=== PATIENT | female | born 1965 | race Caucasian/White ===

== ENCOUNTER 2017-12-04 18:46 | Emergency (ER) | payer OTHER ==
[~2017-12-04] VITALS: Ht 157.5 cm; Wt 66.2 kg
[2017-12-04 18:49] VITALS: Ht 157.5 cm; Wt 66.2 kg
[2017-12-04 21:23] VITALS: BP 125/77
[2017-12-04 22:01] LABS: microscopic required? YES; urine erythrocyte 1+ (NEGATIVE)
== END 2017-12-04 21:23 | disposition home or self-care (01) ==
LOC: ED 18:46
PROVIDERS: Specialist
DX: K59.00 Constipation, unspecified (principal); E11.9 Type 2 diabetes mellitus without complications
CPT/HCPCS: J1885; J3010; Q0162